=== PATIENT | female | born 2000 | race Caucasian/White ===

== ENCOUNTER 2020-07-19 16:33 | Outpatient (REF) | payer OTHER, SELFPAY | END 2020-07-19 16:34 | disposition home or self-care (01) | LOC: HO.LAB 16:33 | PROVIDERS: Visit Provider Internal Medicine | DX: Z20.828 Contact with and (suspected) exposure to other viral communicable diseases (principal) | CPT/HCPCS: C9803; U0003 ==

== ENCOUNTER 2022-01-10 15:11 | Emergency (ER) | payer OTHER, SELFPAY ==
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
[2022-01-10 15:30] VITALS: BP 136/89; PULSE 104; O2SAT 99
[2022-01-10 15:32] VITALS: BP 145/86; PULSE 90; RESP 16; TEMP 36.6; O2SAT 99; BMI 23.3
[2022-01-10 16:39] VITALS: BP 131/81; PULSE 80; RESP 16; TEMP 36.9; O2SAT 98
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
[2022-01-10] MEDS: Ondansetron ODT 4 MG TAB.RAPDIS TRANSLINGU (17:33)
[2022-01-10] MEDS: Acetaminophen 325 MG TABLET 650 MG PO (17:33)
[2022-01-10] MEDS: Ketorolac Tromethamine 15 MG/ML VIAL 30 MG IM (18:35)
[2022-01-10 19:18] VITALS: BP 132/86; PULSE 80; RESP 16; TEMP 36.8; O2SAT 98
== END 2022-01-10 20:03 | disposition home or self-care (01) ==
PROVIDERS: Emergency Provider Emergency Medicine
DX: S09.90XA Unspecified injury of head, initial encounter (principal); M54.2 Cervicalgia; M54.50 Low back pain, unspecified; R51.9 Headache, unspecified; M54.6 Pain in thoracic spine; M25.562 Pain in left knee; V43.52XA Car driver injured in collision with other type car in traffic accident, initial encounter; Y93.9 Activity, unspecified; Y92.410 Unspecified street and highway as the place of occurrence of the external cause; Y99.9 Unspecified external cause status
CPT/HCPCS: 70450; 70486; 72072; 72100; 72125; 73562; 96372; 99283; 99284; J1885

== ENCOUNTER 2022-05-25 16:00 | Outpatient (RCR) | payer OTHER, SELFPAY | END 2022-06-27 13:18 | disposition home or self-care (01) | LOC: HO.PT 16:00 | PROVIDERS: PCP Physician Assistant; Visit Provider Physician Assistant | DX: M54.50 Low back pain, unspecified (principal); M54.2 Cervicalgia | CPT/HCPCS: 97110; 97112; 97140; 97162; 97530 ==